=== PATIENT | female | born 1945 | race African-American/Black ===

== ENCOUNTER 2017-08-23 23:10 | Inpatient (IN) | payer MEDICARE ==
[2017-08-23 23:46] LABS: % BASOPHILS 0.8 % (0.0-2.0); % EOSINOPHILS 4.6 % (0.0-5.0); % LYMPHOCYTES 31.5 % (20.0-50.0); % MONOCYTES 7.8 % (2.0-10.0); % NEUTROPHILS 55.3 % (40.0-80.0); EOSINOPHILE ABSOLUTE 0.3 Th/cmm (0.1-0.4); HEMATOCRIT 33.4 % (41.0-60); HEMOGLOBIN 11.2 gm/dL (12-16); LYMPHOCYTE ABSOLUTE 1.8 Th/cmm (1.5-3.0); MEAN CELL VOLUME 93.5 fl (81-100); MEAN CORPUSCULAR HEMOGLOBIN 31.3 pg (27.0-31.0); MEAN CORPUSCULAR HGB CONC 33.5 pg (28.0-36.0); MEAN PLATELET VOLUME 9.8 fl; MONOCYTE ABSOLUTE 0.4 Th/cmm (0.3-1.0); NEUTROPHILE ABSOLUTE 3.1 Th/cmm (1.8-8.0); PLATELET COUNT 194 Th/cmm (150-400); RED BLOOD COUNT 3.57 Mil/cmm (3.80-5.20); RED CELL DISTRIBUTION WIDTH 14.3 % (11.5-20.0); WHITE BLOOD COUNT 5.6 Th/cmm (4.8-10.8)
[2017-08-24 00:06] LABS: ANION GAP 11.4 (7.0-16.0); BUN - UREA NITROGEN 19 mg/dL (7-25); CALCIUM SERUM 9.6 mg/dL (8.6-10.3); CHLORIDE 105 mEq/L (98-107); CREATININE - SERUM 0.9 mg/dL (0.6-1.2); GFR AFRICAN-AMERICAN > 60.0 ml/min (>90); GFR NON AFRICAN-AMERICAN > 60.0 ml/min; GLUCOSE 102 mg/dL (70-105); POTASSIUM SERUM 3.4 mEq/L (3.5-5.1); SODIUM SERUM 141 mEq/L (136-145)
[2017-08-24 01:42] VITALS: BP 101/60
--- NOTE | 2017-08-24 09:51 | Diagnostic Imaging Report ---
Portable chest x-ray HISTORY: Cough The heart size is difficult to assess with portable technique in a poor inspiration, but appears generous. A linear density is noted within the left lower lobe. The finding may be associated with scarring or subsegmental atelectasis. IMPRESSION: 1. Faint linear density left lower lobe that may be associated with scarring or subsegmental atelectasis 2. Cardiomegaly
--- NOTE | 2017-08-25 01:02 | History & Physical ---
ADMIT DATE: 08/24/2017 HISTORY OF PRESENT ILLNESS: The patient is a 72-year-old female with long history of dementia, degenerative joint disease, admitted to [facility] under Dr. Roman's service for treatment. The patient has a long history of dementia, poor historian. The patient has been agitated recently with aggressive behavior. No fever, no chills, no cough, no shortness of breath. PAST MEDICAL HISTORY: Significant for degenerative joint disease, dementia. PAST SURGICAL HISTORY: No recent surgery. ALLERGIES: Iodine, penicillin. MEDICATIONS: Follow admission reconciliation. SOCIAL HISTORY: No smoking, no alcohol, no drug. FAMILY HISTORY: Noncontributory. REVIEW OF SYSTEMS: IMMUNO SYSTEM: No history of chronic renal disorder. CARDIOVASCULAR SYSTEM: No coronary artery disease. ENDOCRINE SYSTEM: No diabetes or thyroid problem. GASTROINTESTINAL SYSTEM: No upper or lower GI bleed. NEUROLOGICAL SYSTEM: History of dementia. SKELETOMUSCULAR SYSTEM: No muscular dystrophy. She has degenerative joint disease. PHYSICAL EXAMINATION: GENERAL: She is awake, not coherent. VITAL SIGNS: Temperature 98.2, heart rate 54, blood pressure 116/60. HEENT: Normocephalic. Pupils reacting equal to light and accommodation. Sclerae clear. NECK: Supple. Negative for lymphadenopathy, JVD, or bruit. CHEST: Entry of air bilateral normal. No rhonchi or wheezing. HEART: S1, S2 normal. No gallop rhythm. ABDOMEN: Soft, bowel sounds positive. EXTREMITIES: No edema. NEUROLOGIC: She is awake, alert, not fully oriented. No focal motor or sensory deficit. LABORATORY DATA: White blood cell 5.6, hemoglobin 11.2, hematocrit 33.4, platelets 194. Sodium 141, potassium 3.4, BUN 19, creatinine 0.9. ASSESSMENT: 1. Anemia. 2. Degenerative joint disease. 3. Dementia. PLAN: The patient admitted to the hospital under Dr. Roman's service. MEDICAL PROBLEMS ADDRESSED DURING HOSPITALIZATION: Dementia, psychosis. MEDICAL PROBLEMS ADDRESSED AT DISCHARGE: Degenerative joint disease, dementia. The patient is medically stable for activity. Thank you, Dr. Roman, for asking me to see your patient. JOB# [id number]
--- NOTE | 2017-08-25 06:03 | Psychosocial Evaluation ---
DATE OF SERVICE: 08/24/2017 IDENTIFYING INFORMATION: The patient is a 72-year-old -[place] female, who got on a 5150 hold for . HISTORY OF PRESENT ILLNESS: The patient brought in after she was found to be aggressive towards staff members at [place]. The patient is extremely irritable, refusing to answer any questions, acting very impulsive, bizarre manner such as disrobing while on the unit. Unknown if she has been complaint with medications. PAST MEDICAL HISTORY: The patient is generally healthy. PAST PSYCHIATRIC HISTORY: The patient seems to be suffering from dementia, but there is no active record of this. MENTAL STATUS EXAMINATION: GENERAL APPEARANCE AND BEHAVIOR: The patient is uncooperative, poor eye contact, is generally very guarded and confused on appearance. SPEECH: Normal rate, rhythm and tone. MOOD AND AFFECT: The patient is irritable and labile. THOUGHT PROCESS AND THOUGHT CONTENT: The patient refused to answer any questions regarding orientation or concentration. Insight and judgment is poor. DIAGNOSTIC IMPRESSION: Dementia. PLAN: We will monitor the patient on a daily basis for response to medications and titrate as needed. JOB# [id number]
--- NOTE | 2017-08-25 20:07 | Progress Notes ---
DATE: 08/25/[address] Roman. Case was discussed with staff of the patient, reviewed records. This is a 72-year-old female, who was admitted on a hold after she was found to be aggressive towards staff members at [place]. The patient was extremely irritable, refusing to answer questions, acting impulsive, bizarre manner such as disrobing while on the unit. Unknown if she has been compliant with medication. The patient, when I tried to talk to her, was very evasive. I asked her what is the date today, she said it is her birthday; and I asked her when is her birthday, she said today; and so on; so she was going in circles. She was unable to tell me where she is, why she is here, unpredictable and impulsive. She is demented, confused, sometimes laughing inappropriately. I will be initiating Aricept on this patient to help with her dementing process and we will continue to work with the patient in group therapy, milieu therapy, adjust the medication as needed. JOB# [id number]
--- NOTE | 2017-08-25 21:59 | Internal Medicine Prog Note ---
Internal Medicine Subjective - Subjective Service Date: 08/25/17 Patient seen and examined:: with staff Patient is:: awake, verbal, in bed, talking, confused Per staff patient has:: no adverse event Internal Medicine Objective - Results Result Diagrams: 08/23/17 23:36 08/23/17 23:36 Recent Labs: Laboratory Last Values WBC 5.6 Th/cmm (4.8-10.8) 08/23/17 23:36 RBC 3.57 Mil/cmm (3.80-5.20) L 08/23/17 23:36 Hgb 11.2 gm/dL (12-16) L 08/23/17 23:36 Hct 33.4 % (41.0-60) L 08/23/17 23:36 MCV 93.5 fl (81-100) 08/23/17 23:36 MCH 31.3 pg (27.0-31.0) H 08/23/17 23:36 MCHC Differential 33.5 pg (28.0-36.0) 08/23/17 23:36 RDW 14.3 % (11.5-20.0) 08/23/17 23:36 Plt Count 194 Th/cmm (150-400) 08/23/17 23:36 MPV 9.8 fl 08/23/17 23:36 Neutrophils % 55.3 % (40.0-80.0) 08/23/17 23:36 Lymphocytes % 31.5 % (20.0-50.0) 08/23/17 23:36 Monocytes % 7.8 % (2.0-10.0) 08/23/17 23:36 Eosinophils % 4.6 % (0.0-5.0) 08/23/17 23:36 Basophils % 0.8 % (0.0-2.0) 08/23/17 23:36 Sodium 141 mEq/L (136-145) 08/23/17 23:36 Potassium 3.4 mEq/L (3.5-5.1) L 08/23/17 23:36 Chloride 105 mEq/L (98-107) 08/23/17 23:36 Carbon Dioxide 28.0 mEq/L (21.0-31.0) 08/23/17 23:36 Anion Gap 11.4 (7.0-16.0) 08/23/17 23:36 BUN 19 mg/dL (7-25) 08/23/17 23:36 Creatinine 0.9 mg/dL (0.6-1.2) 08/23/17 23:36 Est GFR ( Amer) > 60.0 ml/min (>90) 08/23/17 23:36 Est GFR (Non-Af Amer) > 60.0 ml/min 08/23/17 23:36 BUN/Creatinine Ratio 21.1 08/23/17 23:36 Glucose 102 mg/dL (70-105) 08/23/17 23:36 Calcium 9.6 mg/dL (8.6-10.3) 08/23/17 23:36 - Physical Exam Vitals and I&O: Vital Signs Temp 98.4 F 08/25/17 20:31 Pulse 64 08/25/17 20:31 Resp 18 08/25/17 20:31 BP 110/62 08/25/17 20:31 Pulse Ox 98 08/25/17 20:31 Intake & Output 08/25/17 08/25/17 08/26/17 06:59 18:59 06:59 Intake Total 180 400 120 Balance 180 400 120 Intake: Oral 180 400 120 Other: # Voids 2 2 3 # Bowel Movements 0 0 Active Medications: Current Medications Acetaminophen (Tylenol) 650 mg PO Q4HR PRN PRN Reason: Mild Pain / Temp above 100 Stop: 10/23/17 04:36 Donepezil HCl (Aricept) 5 mg PO HS SAAD Stop: 10/24/17 20:59 Last Admin: 08/25/17 21:14 Dose: 5 mg Lorazepam (Ativan) 0.5 mg PO Q4HR PRN; Protocol PRN Reason: anxiety/agitation Stop: 09/23/17 02:07 Zolpidem Tartrate (Ambien) 5 mg PO HS PRN PRN Reason: Insomnia Stop: 10/23/17 02:07 Last Admin: 08/25/17 21:14 Dose: 5 mg General: demented HEENT: NC/AT, PERRLA, EOMI, anicteric sclerae, throat clear Neck: No JVD, No thyromegaly, +2 carotid pulse wo bruit, No LAD Lungs: CTAB Cardiovascular: RRR, Normal S1, Normal S2, without murmur Abdomen: soft, non-tender, non-distended Extremities: clear Neurological: no change Internal Medicine Assmt/Plan - Assessment Assessment: 1.ANEMIA. 2.DJD. 3.DEMENTIA - Plan Plan: CONTINUE ON CURRENT MEDICATION AND DIET.
--- NOTE | 2017-08-26 12:36 | History & Physical ---
ADMIT DATE: 08/24/[address] Roman. Case was discussed with staff of the patient and reviewed records. The patient continues to be confused, continues to be unable to make safe plan for self-care. Continues to have poor insight, unpredictable, impulsive, needing redirection, internally preoccupied. Unable to participate in a meaningful conversation. No side effects with the medication. No sedation. No nausea. No extrapyramidal symptoms. I initiated Aricept on her yesterday and we will continue outpatient group therapy, milieu therapy, adjust medication as needed. JOB# [id number]
--- NOTE | 2017-08-26 19:46 | Internal Medicine Prog Note ---
Internal Medicine Subjective - Subjective Service Date: 08/26/17 Patient seen and examined:: with staff (SHE FEELS WELL) Patient is:: awake, verbal, in bed, talking, confused Per staff patient has:: no adverse event Internal Medicine Objective - Results Result Diagrams: 08/23/17 23:36 08/23/17 23:36 Recent Labs: Laboratory Last Values WBC 5.6 Th/cmm (4.8-10.8) 08/23/17 23:36 RBC 3.57 Mil/cmm (3.80-5.20) L 08/23/17 23:36 Hgb 11.2 gm/dL (12-16) L 08/23/17 23:36 Hct 33.4 % (41.0-60) L 08/23/17 23:36 MCV 93.5 fl (81-100) 08/23/17 23:36 MCH 31.3 pg (27.0-31.0) H 08/23/17 23:36 MCHC Differential 33.5 pg (28.0-36.0) 08/23/17 23:36 RDW 14.3 % (11.5-20.0) 08/23/17 23:36 Plt Count 194 Th/cmm (150-400) 08/23/17 23:36 MPV 9.8 fl 08/23/17 23:36 Neutrophils % 55.3 % (40.0-80.0) 08/23/17 23:36 Lymphocytes % 31.5 % (20.0-50.0) 08/23/17 23:36 Monocytes % 7.8 % (2.0-10.0) 08/23/17 23:36 Eosinophils % 4.6 % (0.0-5.0) 08/23/17 23:36 Basophils % 0.8 % (0.0-2.0) 08/23/17 23:36 Sodium 141 mEq/L (136-145) 08/23/17 23:36 Potassium 3.4 mEq/L (3.5-5.1) L 08/23/17 23:36 Chloride 105 mEq/L (98-107) 08/23/17 23:36 Carbon Dioxide 28.0 mEq/L (21.0-31.0) 08/23/17 23:36 Anion Gap 11.4 (7.0-16.0) 08/23/17 23:36 BUN 19 mg/dL (7-25) 08/23/17 23:36 Creatinine 0.9 mg/dL (0.6-1.2) 08/23/17 23:36 Est GFR ( Amer) > 60.0 ml/min (>90) 08/23/17 23:36 Est GFR (Non-Af Amer) > 60.0 ml/min 08/23/17 23:36 BUN/Creatinine Ratio 21.1 08/23/17 23:36 Glucose 102 mg/dL (70-105) 08/23/17 23:36 Calcium 9.6 mg/dL (8.6-10.3) 08/23/17 23:36 - Physical Exam Vitals and I&O: Vital Signs Temp 97.5 F 08/26/17 16:38 Pulse 55 08/26/17 16:38 Resp 18 08/26/17 16:38 BP 112/54 08/26/17 16:38 Pulse Ox 97 08/26/17 16:38 Intake & Output 08/26/17 08/26/17 08/27/17 06:59 18:59 06:59 Intake Total 120 Balance 120 Intake: Oral 120 Other: # Voids 2 # Bowel Movements 0 Active Medications: Current Medications Acetaminophen (Tylenol) 650 mg PO Q4HR PRN PRN Reason: Mild Pain / Temp above 100 Stop: 10/23/17 04:36 Donepezil HCl (Aricept) 5 mg PO HS SAAD Stop: 10/24/17 20:59 Last Admin: 08/25/17 21:14 Dose: 5 mg Lorazepam (Ativan) 0.5 mg PO Q4HR PRN; Protocol PRN Reason: anxiety/agitation Stop: 09/23/17 02:07 Zolpidem Tartrate (Ambien) 5 mg PO HS PRN PRN Reason: Insomnia Stop: 10/23/17 02:07 Last Admin: 08/25/17 21:14 Dose: 5 mg General: demented HEENT: NC/AT, PERRLA, EOMI, anicteric sclerae, throat clear Neck: No JVD, No thyromegaly, +2 carotid pulse wo bruit, No LAD Lungs: CTAB Cardiovascular: RRR, Normal S1, Normal S2, without murmur Abdomen: soft, non-tender, non-distended Extremities: clear Neurological: no change Internal Medicine Assmt/Plan - Assessment Assessment: 1.ANEMIA. 2.DJD. 3.DEMENTIA - Plan Plan: CONTINUE ON CURRENT MEDICATION AND DIET.
--- NOTE | 2017-08-27 21:17 | Internal Medicine Prog Note ---
Internal Medicine Subjective - Subjective Service Date: 08/27/17 Patient seen and examined:: with staff Patient is:: awake, verbal, in bed, talking, confused Per staff patient has:: no adverse event Internal Medicine Objective - Results Result Diagrams: 08/23/17 23:36 08/23/17 23:36 Recent Labs: Laboratory Last Values WBC 5.6 Th/cmm (4.8-10.8) 08/23/17 23:36 RBC 3.57 Mil/cmm (3.80-5.20) L 08/23/17 23:36 Hgb 11.2 gm/dL (12-16) L 08/23/17 23:36 Hct 33.4 % (41.0-60) L 08/23/17 23:36 MCV 93.5 fl (81-100) 08/23/17 23:36 MCH 31.3 pg (27.0-31.0) H 08/23/17 23:36 MCHC Differential 33.5 pg (28.0-36.0) 08/23/17 23:36 RDW 14.3 % (11.5-20.0) 08/23/17 23:36 Plt Count 194 Th/cmm (150-400) 08/23/17 23:36 MPV 9.8 fl 08/23/17 23:36 Neutrophils % 55.3 % (40.0-80.0) 08/23/17 23:36 Lymphocytes % 31.5 % (20.0-50.0) 08/23/17 23:36 Monocytes % 7.8 % (2.0-10.0) 08/23/17 23:36 Eosinophils % 4.6 % (0.0-5.0) 08/23/17 23:36 Basophils % 0.8 % (0.0-2.0) 08/23/17 23:36 Sodium 141 mEq/L (136-145) 08/23/17 23:36 Potassium 3.4 mEq/L (3.5-5.1) L 08/23/17 23:36 Chloride 105 mEq/L (98-107) 08/23/17 23:36 Carbon Dioxide 28.0 mEq/L (21.0-31.0) 08/23/17 23:36 Anion Gap 11.4 (7.0-16.0) 08/23/17 23:36 BUN 19 mg/dL (7-25) 08/23/17 23:36 Creatinine 0.9 mg/dL (0.6-1.2) 08/23/17 23:36 Est GFR ( Amer) > 60.0 ml/min (>90) 08/23/17 23:36 Est GFR (Non-Af Amer) > 60.0 ml/min 08/23/17 23:36 BUN/Creatinine Ratio 21.1 08/23/17 23:36 Glucose 102 mg/dL (70-105) 08/23/17 23:36 Calcium 9.6 mg/dL (8.6-10.3) 08/23/17 23:36 - Physical Exam Vitals and I&O: Vital Signs Temp 98.5 F 08/27/17 16:48 Pulse 81 08/27/17 16:48 Resp 20 08/27/17 16:48 BP 124/63 08/27/17 16:48 Pulse Ox 97 08/27/17 16:48 Intake & Output 08/27/17 08/27/17 08/28/17 06:59 18:59 06:59 Intake Total 250 Balance 250 Intake: Oral 250 Other: # Voids 2 # Bowel Movements 0 Active Medications: Current Medications Acetaminophen (Tylenol) 650 mg PO Q4HR PRN PRN Reason: Mild Pain / Temp above 100 Stop: 10/23/17 04:36 Donepezil HCl (Aricept) 5 mg PO HS SAAD Stop: 10/24/17 20:59 Last Admin: 08/26/17 21:05 Dose: 5 mg Lorazepam (Ativan) 0.5 mg PO Q4HR PRN; Protocol PRN Reason: anxiety/agitation Stop: 09/23/17 02:07 Zolpidem Tartrate (Ambien) 5 mg PO HS PRN PRN Reason: Insomnia Stop: 10/23/17 02:07 Last Admin: 08/25/17 21:14 Dose: 5 mg General: demented HEENT: NC/AT, PERRLA, EOMI, anicteric sclerae, throat clear Neck: No JVD, No thyromegaly, +2 carotid pulse wo bruit, No LAD Lungs: CTAB Cardiovascular: RRR, Normal S1, Normal S2, without murmur Abdomen: soft, non-tender, non-distended Extremities: clear Neurological: no change Internal Medicine Assmt/Plan - Assessment Assessment: 1.ANEMIA. 2.DJD. 3.DEMENTIA - Plan Plan: CONTINUE ON CURRENT MEDICATION AND DIET.
[2017-08-28] MEDS ORDERED: Haloperidol Lactate 5 mg/mL 1mL Vial ONE (07:24)
[2017-08-28] MEDS ORDERED: Haloperidol Lactate 5 mg/mL 1mL Vial IM STA (08:25)
--- NOTE | 2017-08-28 18:56 | Progress Notes ---
DATE: 08/27/2017 SUBJECTIVE: Chart reviewed and the patient interviewed. Also discussed the patient's condition with the staff and reviewed records and labs. The patient continue to have foul language and continue to insult staff and others. Also, the patient is still easily agitated and she is confused. She also has been having difficulty with her mood and difficulty with her following directions. ASSESSMENT: The patient is still agitated and confused. TREATMENT PLAN: Continue to monitor her behavior and her condition closely. Also, continue to work on her agitation and irritability and continue to follow up. JOB# [id number]
--- NOTE | 2017-08-28 20:31 | Internal Medicine Prog Note ---
Internal Medicine Subjective - Subjective Service Date: 08/28/17 Patient seen and examined:: with staff Patient is:: awake, verbal, in bed, talking, confused Per staff patient has:: no adverse event Internal Medicine Objective - Results Result Diagrams: 08/23/17 23:36 08/23/17 23:36 Recent Labs: Laboratory Last Values WBC 5.6 Th/cmm (4.8-10.8) 08/23/17 23:36 RBC 3.57 Mil/cmm (3.80-5.20) L 08/23/17 23:36 Hgb 11.2 gm/dL (12-16) L 08/23/17 23:36 Hct 33.4 % (41.0-60) L 08/23/17 23:36 MCV 93.5 fl (81-100) 08/23/17 23:36 MCH 31.3 pg (27.0-31.0) H 08/23/17 23:36 MCHC Differential 33.5 pg (28.0-36.0) 08/23/17 23:36 RDW 14.3 % (11.5-20.0) 08/23/17 23:36 Plt Count 194 Th/cmm (150-400) 08/23/17 23:36 MPV 9.8 fl 08/23/17 23:36 Neutrophils % 55.3 % (40.0-80.0) 08/23/17 23:36 Lymphocytes % 31.5 % (20.0-50.0) 08/23/17 23:36 Monocytes % 7.8 % (2.0-10.0) 08/23/17 23:36 Eosinophils % 4.6 % (0.0-5.0) 08/23/17 23:36 Basophils % 0.8 % (0.0-2.0) 08/23/17 23:36 Sodium 141 mEq/L (136-145) 08/23/17 23:36 Potassium 3.4 mEq/L (3.5-5.1) L 08/23/17 23:36 Chloride 105 mEq/L (98-107) 08/23/17 23:36 Carbon Dioxide 28.0 mEq/L (21.0-31.0) 08/23/17 23:36 Anion Gap 11.4 (7.0-16.0) 08/23/17 23:36 BUN 19 mg/dL (7-25) 08/23/17 23:36 Creatinine 0.9 mg/dL (0.6-1.2) 08/23/17 23:36 Est GFR ( Amer) > 60.0 ml/min (>90) 08/23/17 23:36 Est GFR (Non-Af Amer) > 60.0 ml/min 08/23/17 23:36 BUN/Creatinine Ratio 21.1 08/23/17 23:36 Glucose 102 mg/dL (70-105) 08/23/17 23:36 Calcium 9.6 mg/dL (8.6-10.3) 08/23/17 23:36 - Physical Exam Vitals and I&O: Vital Signs Temp 98.5 F 08/27/17 16:48 Pulse 81 08/27/17 16:48 Resp 20 08/27/17 16:48 BP 124/63 08/27/17 16:48 Pulse Ox 97 08/27/17 16:48 Active Medications: Current Medications Acetaminophen (Tylenol) 650 mg PO Q4HR PRN PRN Reason: Mild Pain / Temp above 100 Stop: 10/23/17 04:36 Donepezil HCl (Aricept) 10 mg PO HS SAAD Stop: 10/24/17 20:59 Last Admin: 08/28/17 20:18 Dose: 10 mg Lorazepam (Ativan) 0.5 mg PO Q4HR PRN; Protocol PRN Reason: anxiety/agitation Stop: 09/23/17 02:07 Quetiapine Fumarate (Seroquel) 25 mg PO TID SAAD PRN Reason: Protocol Stop: 10/27/17 08:59 Last Admin: 08/28/17 20:18 Dose: 25 mg Zolpidem Tartrate (Ambien) 5 mg PO HS PRN PRN Reason: Insomnia Stop: 10/23/17 02:07 Last Admin: 08/25/17 21:14 Dose: 5 mg General: demented HEENT: NC/AT, PERRLA, EOMI, anicteric sclerae, throat clear Neck: No JVD, No thyromegaly, +2 carotid pulse wo bruit, No LAD Lungs: CTAB Cardiovascular: RRR, Normal S1, Normal S2, without murmur Abdomen: soft, non-tender, non-distended Extremities: clear Neurological: no change Internal Medicine Assmt/Plan - Assessment Assessment: 1.ANEMIA. 2.DJD. 3.DEMENTIA - Plan Plan: CONTINUE ON CURRENT MEDICATION AND DIET.
--- NOTE | 2017-08-29 00:38 | Progress Notes ---
DATE: SUBJECTIVE: Chart reviewed and the patient interviewed. Also discussed the patient's condition with the staff and reviewed records and labs. The patient is extremely agitated and extremely irritable. The patient also is confused and delusional. She also is aggressive with the staff and tried to push the staff and the patient has to be placed in seclusion. She also is still restless and she is still suspicious and paranoid. The patient also is having mood swings and she is unable to follow any of staff directions. On the other hand, the patient is compliant with taking her medications with no side effects of medications. During interview, the patient is confused and restless and she is easily agitated and unable to answer any of my questions coherently. ASSESSMENT: The patient is still agitated and aggressive and needs close monitoring. TREATMENT PLAN: We will continue monitoring her behavior and her condition closely. Also, we will start the patient on Seroquel in a dose of 25 mg 3 times a day and we will monitor the dose. Also, will work on her poor impulse control and we will continue to follow up closely. JOB# [id number]
--- NOTE | 2017-08-29 13:15 | Internal Medicine Prog Note ---
Internal Medicine Subjective - Subjective Service Date: 08/29/17 Patient seen and examined:: with staff Patient is:: awake, verbal, in bed, talking, confused Per staff patient has:: no adverse event Internal Medicine Objective - Results Result Diagrams: 08/23/17 23:36 08/23/17 23:36 Recent Labs: Laboratory Last Values WBC 5.6 Th/cmm (4.8-10.8) 08/23/17 23:36 RBC 3.57 Mil/cmm (3.80-5.20) L 08/23/17 23:36 Hgb 11.2 gm/dL (12-16) L 08/23/17 23:36 Hct 33.4 % (41.0-60) L 08/23/17 23:36 MCV 93.5 fl (81-100) 08/23/17 23:36 MCH 31.3 pg (27.0-31.0) H 08/23/17 23:36 MCHC Differential 33.5 pg (28.0-36.0) 08/23/17 23:36 RDW 14.3 % (11.5-20.0) 08/23/17 23:36 Plt Count 194 Th/cmm (150-400) 08/23/17 23:36 MPV 9.8 fl 08/23/17 23:36 Neutrophils % 55.3 % (40.0-80.0) 08/23/17 23:36 Lymphocytes % 31.5 % (20.0-50.0) 08/23/17 23:36 Monocytes % 7.8 % (2.0-10.0) 08/23/17 23:36 Eosinophils % 4.6 % (0.0-5.0) 08/23/17 23:36 Basophils % 0.8 % (0.0-2.0) 08/23/17 23:36 Sodium 141 mEq/L (136-145) 08/23/17 23:36 Potassium 3.4 mEq/L (3.5-5.1) L 08/23/17 23:36 Chloride 105 mEq/L (98-107) 08/23/17 23:36 Carbon Dioxide 28.0 mEq/L (21.0-31.0) 08/23/17 23:36 Anion Gap 11.4 (7.0-16.0) 08/23/17 23:36 BUN 19 mg/dL (7-25) 08/23/17 23:36 Creatinine 0.9 mg/dL (0.6-1.2) 08/23/17 23:36 Est GFR ( Amer) > 60.0 ml/min (>90) 08/23/17 23:36 Est GFR (Non-Af Amer) > 60.0 ml/min 08/23/17 23:36 BUN/Creatinine Ratio 21.1 08/23/17 23:36 Glucose 102 mg/dL (70-105) 08/23/17 23:36 POC Glucose 109 MG/DL (70 - 105) H 08/29/17 11:04 Calcium 9.6 mg/dL (8.6-10.3) 08/23/17 23:36 - Physical Exam Vitals and I&O: Vital Signs Temp 98.0 F 08/28/17 20:00 Pulse 64 08/28/17 20:00 Resp 20 08/28/17 20:00 BP 100/60 08/28/17 20:00 Pulse Ox 97 08/28/17 20:00 Intake & Output 08/28/17 08/29/17 08/29/17 18:59 06:59 18:59 Intake Total 240 Balance 240 Intake: Oral 240 Other: # Voids 2 Active Medications: Current Medications Acetaminophen (Tylenol) 650 mg PO Q4HR PRN PRN Reason: Mild Pain / Temp above 100 Stop: 10/23/17 04:36 Donepezil HCl (Aricept) 10 mg PO HS SAAD Stop: 10/24/17 20:59 Last Admin: 08/28/17 20:18 Dose: 10 mg Lorazepam (Ativan) 0.5 mg PO Q4HR PRN; Protocol PRN Reason: anxiety/agitation Stop: 09/23/17 02:07 Quetiapine Fumarate (Seroquel) 50 mg PO TID SAAD PRN Reason: Protocol Stop: 10/27/17 08:59 Last Admin: 08/29/17 08:56 Dose: 50 mg Zolpidem Tartrate (Ambien) 5 mg PO HS PRN PRN Reason: Insomnia Stop: 10/23/17 02:07 Last Admin: 08/25/17 21:14 Dose: 5 mg General: demented HEENT: NC/AT, PERRLA, EOMI, anicteric sclerae, throat clear Neck: No JVD, No thyromegaly, +2 carotid pulse wo bruit, No LAD Lungs: CTAB Cardiovascular: RRR, Normal S1, Normal S2, without murmur Abdomen: soft, non-tender, non-distended Extremities: clear Neurological: no change Internal Medicine Assmt/Plan - Assessment Assessment: 1.ANEMIA. 2.DJD. 3.DEMENTIA - Plan Plan: CONTINUE ON CURRENT MEDICATION AND DIET.
--- NOTE | 2017-08-30 03:53 | Progress Notes ---
DATE: 08/29/2017 PSYCHIATRIC PROGRESS NOTE Chart reviewed and the patient interviewed. Also discussed the patient's condition with the staff and I reviewed records and labs. The patient is still easily agitated. The patient also is still in irritable and in angry mood. The patient also is restless and she still has difficulty following the staff directions. Otherwise, the patient is compliant with taking her medications with no side effects of medications. ASSESSMENT: The patient is still agitated. TREATMENT PLAN: We will continue to monitor her behavior and her condition closely. Also, we will increase Seroquel to 50 mg 3 times a day and will continue to work on her agitation and poor impulse control. JOB# [id number]
--- NOTE | 2017-08-30 16:00 | General Progress Note ---
Subjective - Review of Systems Service Date: 08/30/17 Subjective: resting comfortably on chair no distress Objective - Results Result Diagrams: 08/23/17 23:36 08/23/17 23:36 Recent Labs: Laboratory Last Values WBC 5.6 Th/cmm (4.8-10.8) 08/23/17 23:36 RBC 3.57 Mil/cmm (3.80-5.20) L 08/23/17 23:36 Hgb 11.2 gm/dL (12-16) L 08/23/17 23:36 Hct 33.4 % (41.0-60) L 08/23/17 23:36 MCV 93.5 fl (81-100) 08/23/17 23:36 MCH 31.3 pg (27.0-31.0) H 08/23/17 23:36 MCHC Differential 33.5 pg (28.0-36.0) 08/23/17 23:36 RDW 14.3 % (11.5-20.0) 08/23/17 23:36 Plt Count 194 Th/cmm (150-400) 08/23/17 23:36 MPV 9.8 fl 08/23/17 23:36 Neutrophils % 55.3 % (40.0-80.0) 08/23/17 23:36 Lymphocytes % 31.5 % (20.0-50.0) 08/23/17 23:36 Monocytes % 7.8 % (2.0-10.0) 08/23/17 23:36 Eosinophils % 4.6 % (0.0-5.0) 08/23/17 23:36 Basophils % 0.8 % (0.0-2.0) 08/23/17 23:36 Sodium 141 mEq/L (136-145) 08/23/17 23:36 Potassium 3.4 mEq/L (3.5-5.1) L 08/23/17 23:36 Chloride 105 mEq/L (98-107) 08/23/17 23:36 Carbon Dioxide 28.0 mEq/L (21.0-31.0) 08/23/17 23:36 Anion Gap 11.4 (7.0-16.0) 08/23/17 23:36 BUN 19 mg/dL (7-25) 08/23/17 23:36 Creatinine 0.9 mg/dL (0.6-1.2) 08/23/17 23:36 Est GFR ( Amer) > 60.0 ml/min (>90) 08/23/17 23:36 Est GFR (Non-Af Amer) > 60.0 ml/min 08/23/17 23:36 BUN/Creatinine Ratio 21.1 08/23/17 23:36 Glucose 102 mg/dL (70-105) 08/23/17 23:36 POC Glucose 109 MG/DL (70 - 105) H 08/29/17 11:04 Calcium 9.6 mg/dL (8.6-10.3) 08/23/17 23:36 - Physical Exam Vitals and I&O: Vital Signs Temp 97.2 F 08/30/17 15:54 Pulse 65 08/30/17 15:54 Resp 18 08/30/17 15:54 BP 120/69 08/30/17 15:54 Pulse Ox 96 08/30/17 15:54 Active Medications: Current Medications Acetaminophen (Tylenol) 650 mg PO Q4HR PRN PRN Reason: Mild Pain / Temp above 100 Stop: 10/23/17 04:36 Donepezil HCl (Aricept) 10 mg PO HS SAAD Stop: 10/24/17 20:59 Last Admin: 08/29/17 20:14 Dose: 10 mg Lorazepam (Ativan) 0.5 mg PO Q4HR PRN; Protocol PRN Reason: anxiety/agitation Stop: 09/23/17 02:07 Last Admin: 08/29/17 19:46 Dose: 0.5 mg Quetiapine Fumarate (Seroquel) 50 mg PO TID SAAD PRN Reason: Protocol Stop: 10/27/17 08:59 Last Admin: 08/30/17 13:54 Dose: 50 mg Zolpidem Tartrate (Ambien) 5 mg PO HS PRN PRN Reason: Insomnia Stop: 10/23/17 02:07 Last Admin: 08/29/17 20:14 Dose: 5 mg General: No acute distress HEENT: Atraumatic, PERRLA Neck: Supple, JVD Cardiovascular: Regular rate, Normal S1, Normal S2 Lungs: Clear to auscultation Abdomen: Bowel sounds, Soft Assessment/Plan - Problem List Patient Problems: All Active Problems Unspecified psychosis not due to a substance or known physiological condition ( Acute) F29 - Assessment Assessment: 1.ANEMIA. 2.DJD. 3.DEMENTIA - Plan Plan: cont current treatment Nutritional Asmnt/Malnutr-PDOC - Dietary Evaluation Malnutrition Findings (Please click <Entered> for more info): Nutritional Asmnt/Malnutrition Start: 08/29/17 14: 05 Text: Status: Complete Freq: Document 08/29/17 14:05 MAXIME (Rec: 08/29/17 14:10 MAXIME [email or web address]) Nutritional Asmnt/Malnutrition Patient General Information Nutritional Screening Moderate Risk Diagnosis psychosis, NOS Pertinent Medical Hx/Surgical Hx Dementia, DJD Subjective Information Pt seen sitting in bryan-chair in hallway at time of visit, awake and confused. Pt had boost at lunch and RN was trying to feed her more food. Pt stated food delicious. Per notes, PO intake 75%. Current Diet Order/ Nutrition Support mech soft chopped, boost tid Pertinent Medications seroquel Pertinent Labs 08/23 na 141, K 3.4, Cl 105, BUN 19, Cr 0.9, Clugose 102 08/29 POC 109 Nutritional Hx/Data Height 1.65 m Height (Calculated Centimeters) 165.1 Current Weight (lbs) 68.039 kg Weight (Calculated Kilograms) 68.0 Weight (Calculated Grams) 51519.9 [place] Body Weight 125 % [place] Body Weight 120 Body Mass Index (BMI) 25.0 Weight Status Overweight GI Symptoms GI Symptoms None Last BM none Difficult in: None Skin Integrity/Comment: intact Current %PO Good (75-100%) Estimated Nutritional Goals BEE in Kcals: Using Current wt Calories/Kcals/Kg 25-30 Kcals Calculated 1926-5482 Protein: Using Current wt Protein g/k Protein Calculated 68 Fluid: ml 1700-2040ml (1ml/kcal) Nutritional Problem No current Nutrition Prob Problem N/A Malnutrition Alert Protein-Calorie Malnutrition N/A Is there a minimum of two criteria No selected? Query Text:Check all the applicable criteria. A minimum of two criteria are recommended for diagnosis of either severe or non-severe malnutrition. Intervention/Recommendation Comments 1. Continue with current diet as ordered. Assist with meals as needed. 2. Monitor PO intake, wt, labs and skin integrity 3. F/U as low risk in 7 days, 09/05, PO check 09/02 Expected Outcomes/Goals Expected Outcomes/Goals 1. PO intake to meet at least 75% of nutritional needs. 2. Wt stability, skin to remain intact, labs to approach WNL.
--- NOTE | 2017-08-30 23:39 | Progress Notes ---
DATE: SUBJECTIVE: Chart reviewed and the patient interviewed. Also discussed the patient's condition with the staff and reviewed records and labs. The patient continue to be confused and she is still restless and in irritable mood. The patient also is trying to take off her clothes constantly and staff have to be monitoring her closely. The patient also is still angry and she is still mumbling and have difficulty expressing herself or her feelings. Otherwise, the patient is compliant with taking her medications with no side effects of medications. ASSESSMENT: The patient is still psychotic and agitated and can be dangerous to others and considered to be gravely disabled. TREATMENT PLAN: We will continue monitoring her behavior and her condition closely. Also, continue adjusting psychotropic medications and continue to follow up. [facility]# [id number]
--- NOTE | 2017-08-31 14:15 | General Progress Note ---
Subjective - Review of Systems Service Date: 08/31/17 Subjective: resting comfortably on chair no distress Objective - Results Result Diagrams: 08/23/17 23:36 08/23/17 23:36 Recent Labs: Laboratory Last Values WBC 5.6 Th/cmm (4.8-10.8) 08/23/17 23:36 RBC 3.57 Mil/cmm (3.80-5.20) L 08/23/17 23:36 Hgb 11.2 gm/dL (12-16) L 08/23/17 23:36 Hct 33.4 % (41.0-60) L 08/23/17 23:36 MCV 93.5 fl (81-100) 08/23/17 23:36 MCH 31.3 pg (27.0-31.0) H 08/23/17 23:36 MCHC Differential 33.5 pg (28.0-36.0) 08/23/17 23:36 RDW 14.3 % (11.5-20.0) 08/23/17 23:36 Plt Count 194 Th/cmm (150-400) 08/23/17 23:36 MPV 9.8 fl 08/23/17 23:36 Neutrophils % 55.3 % (40.0-80.0) 08/23/17 23:36 Lymphocytes % 31.5 % (20.0-50.0) 08/23/17 23:36 Monocytes % 7.8 % (2.0-10.0) 08/23/17 23:36 Eosinophils % 4.6 % (0.0-5.0) 08/23/17 23:36 Basophils % 0.8 % (0.0-2.0) 08/23/17 23:36 Sodium 141 mEq/L (136-145) 08/23/17 23:36 Potassium 3.4 mEq/L (3.5-5.1) L 08/23/17 23:36 Chloride 105 mEq/L (98-107) 08/23/17 23:36 Carbon Dioxide 28.0 mEq/L (21.0-31.0) 08/23/17 23:36 Anion Gap 11.4 (7.0-16.0) 08/23/17 23:36 BUN 19 mg/dL (7-25) 08/23/17 23:36 Creatinine 0.9 mg/dL (0.6-1.2) 08/23/17 23:36 Est GFR ( Amer) > 60.0 ml/min (>90) 08/23/17 23:36 Est GFR (Non-Af Amer) > 60.0 ml/min 08/23/17 23:36 BUN/Creatinine Ratio 21.1 08/23/17 23:36 Glucose 102 mg/dL (70-105) 08/23/17 23:36 POC Glucose 109 MG/DL (70 - 105) H 08/29/17 11:04 Calcium 9.6 mg/dL (8.6-10.3) 08/23/17 23:36 - Physical Exam Vitals and I&O: Vital Signs Temp 97.2 F 08/30/17 15:54 Pulse 65 08/30/17 15:54 Resp 18 08/30/17 15:54 BP 120/69 08/30/17 15:54 Pulse Ox 96 08/30/17 15:54 Intake & Output 08/30/17 08/31/17 08/31/17 18:59 06:59 18:59 Intake Total 240 Balance 240 Intake: Oral 240 Other: # Voids 2 Active Medications: Current Medications Acetaminophen (Tylenol) 650 mg PO Q4HR PRN PRN Reason: Mild Pain / Temp above 100 Stop: 10/23/17 04:36 Donepezil HCl (Aricept) 10 mg PO HS SAAD Stop: 10/24/17 20:59 Last Admin: 08/30/17 20:48 Dose: 10 mg Lorazepam (Ativan) 0.5 mg PO Q4HR PRN; Protocol PRN Reason: anxiety/agitation Stop: 09/23/17 02:07 Last Admin: 08/29/17 19:46 Dose: 0.5 mg Quetiapine Fumarate (Seroquel) 50 mg PO TID SAAD PRN Reason: Protocol Stop: 10/27/17 08:59 Last Admin: 08/31/17 13:49 Dose: 50 mg Zolpidem Tartrate (Ambien) 5 mg PO HS PRN PRN Reason: Insomnia Stop: 10/23/17 02:07 Last Admin: 08/30/17 20:48 Dose: 5 mg General: No acute distress HEENT: Atraumatic, PERRLA Neck: Supple, JVD Cardiovascular: Regular rate, Normal S1, Normal S2 Lungs: Clear to auscultation Abdomen: Bowel sounds, Soft Assessment/Plan - Problem List Patient Problems: All Active Problems Unspecified psychosis not due to a substance or known physiological condition ( Acute) F29 - Assessment Assessment: 1.ANEMIA. 2.DJD. 3.DEMENTIA - Plan Plan: cont current treatment Nutritional Asmnt/Malnutr-PDOC - Dietary Evaluation Malnutrition Findings (Please click <Entered> for more info): Nutritional Asmnt/Malnutrition Start: 08/29/17 14: 05 Text: Status: Complete Freq: Document 08/29/17 14:05 MAXIME (Rec: 08/29/17 14:10 JASON [email or web address]) Nutritional Asmnt/Malnutrition Patient General Information Nutritional Screening Moderate Risk Diagnosis psychosis, NOS Pertinent Medical Hx/Surgical Hx Dementia, DJD Subjective Information Pt seen sitting in bryan-chair in hallway at time of visit, awake and confused. Pt had boost at lunch and RN was trying to feed her more food. Pt stated food delicious. Per notes, PO intake 75%. Current Diet Order/ Nutrition Support mech soft chopped, boost tid Pertinent Medications seroquel Pertinent Labs 08/23 na 141, K 3.4, Cl 105, BUN 19, Cr 0.9, Clugose 102 08/29 POC 109 Nutritional Hx/Data Height 1.65 m Height (Calculated Centimeters) 165.1 Current Weight (lbs) 68.039 kg Weight (Calculated Kilograms) 68.0 Weight (Calculated Grams) 39470.9 [place] Body Weight 125 % [place] Body Weight 120 Body Mass Index (BMI) 25.0 Weight Status Overweight GI Symptoms GI Symptoms None Last BM none Difficult in: None Skin Integrity/Comment: intact Current %PO Good (75-100%) Estimated Nutritional Goals BEE in Kcals: Using Current wt Calories/Kcals/Kg 25-30 Kcals Calculated 1766-2459 Protein: Using Current wt Protein g/k Protein Calculated 68 Fluid: ml 1700-2040ml (1ml/kcal) Nutritional Problem No current Nutrition Prob Problem N/A Malnutrition Alert Protein-Calorie Malnutrition N/A Is there a minimum of two criteria No selected? Query Text:Check all the applicable criteria. A minimum of two criteria are recommended for diagnosis of either severe or non-severe malnutrition. Intervention/Recommendation Comments 1. Continue with current diet as ordered. Assist with meals as needed. 2. Monitor PO intake, wt, labs and skin integrity 3. F/U as low risk in 7 days, 09/05, PO check 09/02 Expected Outcomes/Goals Expected Outcomes/Goals 1. PO intake to meet at least 75% of nutritional needs. 2. Wt stability, skin to remain intact, labs to approach WNL.
--- NOTE | 2017-08-31 22:33 | Progress Notes ---
DATE: 08/31/2017 SUBJECTIVE: Chart reviewed and patient interviewed. Also discussed the patient's condition with the staff and reviewed records and labs. The patient is still confused and she is still anxious. The patient also is still easily agitated and easily irritable. The patient also is still trying to take off her clothes. Difficult to redirect her. Otherwise, the patient continued to comply with taking her medications with no side effects of medications. ASSESSMENT: The patient is still psychotic and she is still agitated. TREATMENT PLAN: Continue to monitor her behavior and her condition closely. Also, continue adjusting psychotropic medications and work on behavior modification and we will continue to follow up closely. JOB# [id number]
--- NOTE | 2017-09-01 18:48 | Internal Medicine Prog Note ---
Internal Medicine Subjective - Subjective Service Date: 09/01/17 Patient seen and examined:: with staff Patient is:: awake, verbal, in bed, talking, confused Per staff patient has:: no adverse event Internal Medicine Objective - Results Result Diagrams: 08/23/17 23:36 08/23/17 23:36 Recent Labs: Laboratory Last Values WBC 5.6 Th/cmm (4.8-10.8) 08/23/17 23:36 RBC 3.57 Mil/cmm (3.80-5.20) L 08/23/17 23:36 Hgb 11.2 gm/dL (12-16) L 08/23/17 23:36 Hct 33.4 % (41.0-60) L 08/23/17 23:36 MCV 93.5 fl (81-100) 08/23/17 23:36 MCH 31.3 pg (27.0-31.0) H 08/23/17 23:36 MCHC Differential 33.5 pg (28.0-36.0) 08/23/17 23:36 RDW 14.3 % (11.5-20.0) 08/23/17 23:36 Plt Count 194 Th/cmm (150-400) 08/23/17 23:36 MPV 9.8 fl 08/23/17 23:36 Neutrophils % 55.3 % (40.0-80.0) 08/23/17 23:36 Lymphocytes % 31.5 % (20.0-50.0) 08/23/17 23:36 Monocytes % 7.8 % (2.0-10.0) 08/23/17 23:36 Eosinophils % 4.6 % (0.0-5.0) 08/23/17 23:36 Basophils % 0.8 % (0.0-2.0) 08/23/17 23:36 Sodium 141 mEq/L (136-145) 08/23/17 23:36 Potassium 3.4 mEq/L (3.5-5.1) L 08/23/17 23:36 Chloride 105 mEq/L (98-107) 08/23/17 23:36 Carbon Dioxide 28.0 mEq/L (21.0-31.0) 08/23/17 23:36 Anion Gap 11.4 (7.0-16.0) 08/23/17 23:36 BUN 19 mg/dL (7-25) 08/23/17 23:36 Creatinine 0.9 mg/dL (0.6-1.2) 08/23/17 23:36 Est GFR ( Amer) > 60.0 ml/min (>90) 08/23/17 23:36 Est GFR (Non-Af Amer) > 60.0 ml/min 08/23/17 23:36 BUN/Creatinine Ratio 21.1 08/23/17 23:36 Glucose 102 mg/dL (70-105) 08/23/17 23:36 POC Glucose 109 MG/DL (70 - 105) H 08/29/17 11:04 Calcium 9.6 mg/dL (8.6-10.3) 08/23/17 23:36 - Physical Exam Vitals and I&O: Vital Signs Temp 97.8 F 09/01/17 16:26 Pulse 80 09/01/17 16:26 Resp 20 09/01/17 16:26 BP 144/88 09/01/17 16:26 Pulse Ox 99 09/01/17 16:26 Intake & Output 08/31/17 09/01/17 09/01/17 18:59 06:59 18:59 Intake Total 300 Balance 300 Intake: Oral 300 Other: # Voids 1 Active Medications: Current Medications Acetaminophen (Tylenol) 650 mg PO Q4HR PRN PRN Reason: Mild Pain / Temp above 100 Stop: 10/23/17 04:36 Donepezil HCl (Aricept) 10 mg PO HS SAAD Stop: 10/24/17 20:59 Last Admin: 08/31/17 20:29 Dose: 10 mg Lorazepam (Ativan) 0.5 mg PO Q4HR PRN; Protocol PRN Reason: anxiety/agitation Stop: 09/23/17 02:07 Last Admin: 08/29/17 19:46 Dose: 0.5 mg Quetiapine Fumarate (Seroquel) 75 mg PO TID SAAD PRN Reason: Protocol Stop: 10/27/17 08:59 Last Admin: 09/01/17 13:57 Dose: 75 mg Zolpidem Tartrate (Ambien) 5 mg PO HS PRN PRN Reason: Insomnia Stop: 10/23/17 02:07 Last Admin: 08/31/17 20:30 Dose: 5 mg General: demented HEENT: NC/AT, PERRLA, EOMI, anicteric sclerae, throat clear Neck: No JVD, No thyromegaly, +2 carotid pulse wo bruit, No LAD Lungs: CTAB Cardiovascular: RRR, Normal S1, Normal S2, without murmur Abdomen: soft, non-tender, non-distended Extremities: clear Neurological: no change Internal Medicine Assmt/Plan - Assessment Assessment: 1.ANEMIA. 2.DJD. 3.DEMENTIA - Plan Plan: CONTINUE ON CURRENT MEDICATION AND DIET. Nutritional Asmnt/Malnutr-PDOC - Dietary Evaluation Malnutrition Findings (Please click <Entered> for more info): Nutritional Asmnt/Malnutrition Start: 08/29/17 14: 05 Text: Status: Complete Freq: Document 08/29/17 14:05 MAXIME (Rec: 08/29/17 14:10 JASON [email or web address]) Nutritional Asmnt/Malnutrition Patient General Information Nutritional Screening Moderate Risk Diagnosis psychosis, NOS Pertinent Medical Hx/Surgical Hx Dementia, DJD Subjective Information Pt seen sitting in bryan-chair in hallway at time of visit, awake and confused. Pt had boost at lunch and RN was trying to feed her more food. Pt stated food delicious. Per notes, PO intake 75%. Current Diet Order/ Nutrition Support mech soft chopped, boost tid Pertinent Medications seroquel Pertinent Labs 08/23 na 141, K 3.4, Cl 105, BUN 19, Cr 0.9, Clugose 102 08/29 POC 109 Nutritional Hx/Data Height 1.65 m Height (Calculated Centimeters) 165.1 Current Weight (lbs) 68.039 kg Weight (Calculated Kilograms) 68.0 Weight (Calculated Grams) 27077.9 [place] Body Weight 125 % [place] Body Weight 120 Body Mass Index (BMI) 25.0 Weight Status Overweight GI Symptoms GI Symptoms None Last BM none Difficult in: None Skin Integrity/Comment: intact Current %PO Good (75-100%) Estimated Nutritional Goals BEE in Kcals: Using Current wt Calories/Kcals/Kg 25-30 Kcals Calculated 9430-7042 Protein: Using Current wt Protein g/k Protein Calculated 68 Fluid: ml 1700-2040ml (1ml/kcal) Nutritional Problem No current Nutrition Prob Problem N/A Malnutrition Alert Protein-Calorie Malnutrition N/A Is there a minimum of two criteria No selected? Query Text:Check all the applicable criteria. A minimum of two criteria are recommended for diagnosis of either severe or non-severe malnutrition. Intervention/Recommendation Comments 1. Continue with current diet as ordered. Assist with meals as needed. 2. Monitor PO intake, wt, labs and skin integrity 3. F/U as low risk in 7 days, 09/05, PO check 09/02 Expected Outcomes/Goals Expected Outcomes/Goals 1. PO intake to meet at least 75% of nutritional needs. 2. Wt stability, skin to remain intact, labs to approach WNL.
--- NOTE | 2017-09-03 02:30 | Progress Notes ---
DATE: 09/01/2017 PSYCHIATRIC PROGRESS NOTE Chart reviewed and patient interviewed. Also discussed patient's condition with the staff and reviewed records and labs. The patient is still easily agitated and is still in irritable and angry mood. The patient also is still easily angry and she is still having episodes of yelling and screaming. She also is taking off her clothes. On the other hand, she still slept better last night and decreased yelling and screaming in spite of her confusion. ASSESSMENT: The patient is still psychotic and is still agitated and need close monitoring. TREATMENT PLAN: Continue to monitor her behavior and her condition closely and continue to work on behavioral modification. Also, increase Seroquel to 75 mg 3 times a day and continue to follow up. JOB# [id number]
--- NOTE | 2017-09-03 09:10 | Discharge Summary ---
DATE OF DISCHARGE: 09/02/2017 THE PATIENT'S AGE: 72. SEX: Female. PHYSICIAN: Christa Roman M.D., M.P.H. FINAL DIAGNOSIS/PRIMARY DIAGNOSIS: Unspecified psychosis. REASON FOR HOSPITALIZATION: The patient was admitted to the hospital because of increased agitation and irritability and was unable to follow directions. HOSPITAL COURSE: The patient continued to be agitated and in irritable mood. The patient also was having difficulty following any directions. The patient also was intrusive and have episodes of yelling and screaming. Gradually, the patient's affect was brighter. The patient was less irritable and less agitated. [facility] accepted the patient back and the patient was discharged from the hospital. Physical examination of the patient, there was no major medical problems. AFTER DISCHARGE PLANS: The patient will return to [facility] with plans for outpatient treatment and follow up there. [facility]# [id number]
--- NOTE | 2017-09-11 14:29 | ER Physician Documentation ---
DATE OF SERVICE: EMERGENCY ROOM EVALUATION AND TREATMENT A 72-year-old female patient. This is a lady who was sent by Dr. Roman and Dr. Agosto because of increased agitation, aggression, and medical clearance for general psych admission. The patient was interviewed by me. HISTORY OF PRESENT ILLNESS: The patient every time when I ask her the questions, she starts to laugh. She says she knows she is in the hospital and I am the doctor and otherwise the patient does not have any significant complaints. She is not . She has no children. PHYSICAL EXAMINATION: VITAL SIGNS: Her vital signs done by the triage nurse, Isabelle, shows temperature to be 98.5, pulse of 73, respirations 18, blood pressure 117/72, 97%, height of 5 feet 5 inches. ALLERGIES: The patient is allergic to iodine and penicillin and she is a DNR candidate. Flu unknown. Pneumonia unknown. Tetanus unknown. SOCIAL HISTORY: She does not smoke. She does not drink. PAST SURGICAL HISTORY: Benign and negative. REVIEW OF SYSTEMS: Essentially benign and negative. No history of pneumonia, TB, blood clot, encephalitis, meningitis, brain tumor. No history of myocardial infarction, rheumatic fever, valvular heart disease, pericardial disease, cardiomyopathy. No evidence of any medical disease. No surgical scars on any part of the body. She carries with her the following diagnoses of encephalopathy, weakness, bipolar, hypertension, anxiety, insomnia, Alzheimer's dementia. PHYSICAL EXAMINATION: GENERAL: The patient appears to be awake, alert to some extent. Most of the time she laughs out at my questions asked to her to take the history: She is not in any acute cardiorespiratory distress. She has no edema, no cyanosis. No petechia. No ecchymosis. General examination is benign and negative. NECK: Neck veins are nondistended. Jugular venous pressure is normal. CHEST: Clear, without any rales, rhonchi, or bronchial breathing.. ABDOMEN: Soft, benign and negative. Liver, spleen not enlarged. No free fluid in the abdominal cavity. CENTRAL NERVOUS SYSTEMS: Other than bipolar history, she has a history of anxiety, dementia, and Alzheimer's disease. She is here for medical clearance for going to general psych admission by Dr. Roman and by Dr. Foster. ABDOMEN: Negative. Genitourinary tract is within normal limits. There is no tenderness in the costovertebral angle. CLINICAL IMPRESSION: The patient is here for medical clearance. Baseline blood workup has been ordered. athletic monitor has been ordered to see if there is any cardiac arrhythmia. A chest x-ray has been ordered. EKG has been ordered and if everything is normal, then the patient will be cleared to go to the psychiatric floor, so the final diagnoses are dementia, Alzheimer disease, anxiety, insomnia, encephalopathy, agitation, weakness, bipolar status. She has some depression. She has some aggression as well as agitation. She has other problem which includes do not resuscitate status. So far nobody has put any athletic monitor on the patient for the past 10 plus minutes. If all the labs, etc. comes normal and then the patient will be discharged to the psych facility. The patient's other diagnosis that came from [facility] includes encephalopathy, altered mental status, dementia. She has essential hypertension, but the blood pressure here is within normal limits. She has bipolar disorder, generalized anxiety disorder. Other insomnia problem. [facility]# [id number]
== END 2017-09-02 11:45 | DRG 884 ==
LOC: ER 23:10 → UNDOADMIN 08-24 00:30 → GERO 08-24 00:30
PROVIDERS: ADMIT Psychiatry & Neurology Psychiatry; ATTEND Psychiatry & Neurology Psychiatry
DX: F03.91 Unspecified dementia, unspecified severity, with behavioral disturbance (principal); D64.9 Anemia, unspecified; F29 Unspecified psychosis not due to a substance or known physiological condition; M19.90 Unspecified osteoarthritis, unspecified site; Z88.0 Allergy status to penicillin; Z91.041 Radiographic dye allergy status
CPT/HCPCS: 36415-UA; 71045-TC; 80048-TC; 82948-90; 85025-TC; 93005; G0410; J1200; J1630; J2060; Z7610